=== PATIENT | female | born 1950 | race Caucasian/White ===

== ENCOUNTER 2016-08-10 11:06 | Emergency (ER) | payer MEDICARE, BC ==
[2012-12-18 17:38] VITALS: BMI 32.5
[~2016-08-10 11:06] MED LIST: BETA VAL TP; FLEXERIL10 MG PO; LISINOPRIL2.5 MG PO; PEPCID20 MG PO; PREMARIN0.625 MG PO; ZOFRAN4 MG PO
[2016-08-10 12:27] LABS: BASOPHILS 0.7 % (0-2); EOSINOPHILS 2.9 % (0-7); HEMATOCRIT 41.9 % (36.0-48.0); HEMOGLOBIN 13.3 g/dL (12-16); IMMATURE GRANULOCYTES 0.1 % (0-5); MCHC 31.7 g/dL (31.0-37.0); MCV 94.4 fL (80.0-100.0); MEAN PLATELET VOLUME 11.6 fL (7.4-10.4); MONOCYTES 8.8 % (2-11); NEUTROPHILS 57.5 % (40-80); PLATELET COUNT 204 10x3/uL (130-400); RBC 4.44 10x6/uL (4.00-5.40); RDW 13.1 % (11.5-14.5); WBC 7.5 10x3/uL (4.8-10.8)
[2016-08-10 12:48] LABS: ALBUMIN 3.9 g/dL (3.4-5.0); ALKALINE PHOSPHATASE 64 U/L (46-116); ALT (SGPT) 31 U/L (10-68); BILIRUBIN - TOTAL 0.33 mg/dL (0.2-1.3); CALC OSMOLALITY 281 mosm/kg (275-300); CALCIUM 9.7 mg/dL (8.5-10.1); CARBON DIOXIDE 24.9 mmol/L (21.0-32.0); CHLORIDE - SERUM 103 mmol/L (98-107); CREATININE - SERUM 0.7 mg/dL (0.6-1.3); GLUCOSE 91 mg/dL (74-106); PROTEIN - SERUM 7.8 g/dL (6.4-8.2); SODIUM 141 mmol/L (136-145); UREA NITROGEN 15 mg/dL (7-18); eGFR NON AFRICAN AMERICAN 89 mL/min (90-120)
[2016-08-10 12:52] LABS: TROPONIN-I < 0.017 ng/mL (0.000-0.060)
== END 2016-08-10 13:53 | disposition home or self-care (01) ==
LOC: D.ER 11:06
PROVIDERS: Emergency Medicine
DX: F41.9 Anxiety disorder, unspecified (principal); R07.89 Other chest pain; K21.9 Gastro-esophageal reflux disease without esophagitis; K58.9 Irritable bowel syndrome, unspecified; M26.609 Unspecified temporomandibular joint disorder, unspecified side; M79.7 Fibromyalgia; I10 Essential (primary) hypertension; K22.2 Esophageal obstruction